=== PATIENT | female | born 1995 | race Caucasian/White ===

== ENCOUNTER 2019-03-13 21:06 | Emergency (ER) | payer OTHER ==
[~2019-03-13] VITALS: Ht 152.4 cm; Wt 50.0 kg
[2019-03-13 21:14] VITALS: BP 143/83; TEMP 98.5
[2019-03-13] MEDS ORDERED: KARIVA 28 DAY1 EACH PO (21:55)
[2019-03-13 22:29] VITALS: PULSE 81
== END 2019-03-13 22:29 | disposition home or self-care (01) ==
LOC: COL.ER 21:06
DX: H11.422 Conjunctival edema, left eye (principal)